=== PATIENT | male | born 1955 | race Caucasian/White ===

== ENCOUNTER 2017-06-06 07:00 | Inpatient (IN) | payer OTHER ==
[~2017-06-06] VITALS: Ht 182.9 cm; Wt 91.0 kg
[2017-06-06] VITALS (19 sets, daily range): BP systolic 102–131; BP diastolic 52–80; PULSE 58–78; RESP 13–28
--- NOTE | 2017-06-06 06:54 | HPN ---
Date/Time of Note Date/Time of Note DATE: 06/06/17 TIME: 06:53 Interval H&P Admission Note Pt. seen H&P reviewed: No system changes CASSY DAVIS MD Jun 06, 2017 06:53
[~2017-06-06 07:00] MED LIST: AZEL23SP NASAL; BUPIVACAINE 0.5% (SDV) 30 ML, morphine SULFATE (PF) 8 MG, EPINEPHrine 0.3 MG, KETOROLAC... IRR SCH; CEFAZOLIN 2 GM/50 ML (PMX) 50 ML IVPB SCH; DEXAMETHASONE 1 MG TAB PO SCH; METO-448 PO; MONT10TA21 PO; OLME20TA20 PO; SIMV20TA PO; SOD CHLORIDE 0.9% 100 ML, TRANEXAMIC ACID 3,000 MG IRR SCH; TRANEXAMIC ACID 1,000 MG in SOD CHLORIDE 0.9% 100 ML IVPB SCH
[2017-06-06] MEDS ORDERED: ASPI325T4 PO (07:34)
[2017-06-06] MEDS ORDERED: VALS1TAB76 PO (07:34)
[2017-06-06] MEDS ORDERED: CETI10CA11 PO (07:35)
[2017-06-06] MEDS ORDERED: morphine SULFATE/PF (10 MG/10 ML) INJ ONE (09:45)
[2017-06-06] MEDS ORDERED: PROPOFOL 20 ML ONE (09:45)
[2017-06-06] MEDS ORDERED: CEFAZOLIN 1 GM INJ ONE (09:45)
[2017-06-06] MEDS ORDERED: LIDOCAINE 2% (SDV) 5 ML INJ ONE (09:45)
[2017-06-06] MEDS ORDERED: THROMBIN 5000 UNIT VIAL ONE (10:39)
[2017-06-06] MEDS ORDERED: CA CHLORIDE 10% 10 ML SYRINGE ONE (10:39)
[2017-06-06] MEDS ORDERED: POLYMYXIN/BACITRACIN 1L IRRIG ONE (10:39)
[2017-06-06] MEDS ORDERED: ONDANSETRON 4 MG INJ ONE (11:08)
--- NOTE | 2017-06-06 11:57 | OPR ---
Date/Time of Note Date/Time of Note DATE: 06/06/17 TIME: 11:55 Operative Report Procedure Date: Jun 06, 2017 Preoperative Diagnosis Primary right hip arthritis Postoperative Diagnosis Primary right hip arthritis Operation Performed Right total hip arthroplasty Surgeon see signature line Foreign Broadcast Specialist: ESTEVAN HYDE MD Anesthesia Type: general Estimated Blood Loss: 150 - 200 ml's Transfusion Required: no Pt Condition Post Procedure: stable Disposition: PACU Procedure Description PRODUCTION POTTER SURGEON: Estevan Bowling MD was asked to be present at my request as a result of the complexity associated with this procedure including positioning of the extremity, positioning of the instrumentation and protection of the neurovascular structures. In my opinion, the assistance offered by a surgical coder is insufficient and Dr. Hyde should be compensated for his time. PROCEDURE IN DETAIL: Following the administration of general endotracheal anesthesia supplemented with a spinal anesthetic, the patient was placed in the supine position. The bilateral lower extremities were then prepped and draped in the usual sterile fashion. A night patrol inspector radiograph was obtained for preliminary limb length and femoral size as well as acetabular size. A lateral incision was then made exposing the tensor fascia the fascia was incised the tensor was retracted laterally and the vessels were cauterized. The anterior capsule was then identified and prepared. A capsulectomy was then performed and the femoral head was then evaluated. Severe arthritic changes were noted. A femoral head cut was then made in the appropriate degree of version and inclination. The acetabulum was then exposed and a capsulectomy and labrectomy were completed. The central portion was then entered and serially reamed up to the 51 mm size. A Depuy Jackson cup which is 52 mm in size with a standard liner was then fit into position with solid fixation. A 30 mm screw was used for additional fixation. Attention was then directed to the femur, the femur was exposed and prepared. The canal was entered and serially reamed up to the 10 mm size. A 10 mm Depuy Corail stem was then inserted with solid fixation. A 32 mm, +1.5 femoral head, which was ceramic was then inserted. The leg was taken through full range of motion with no evident instability. In addition, radiographs revealed excellent position with reproduction of the limb lengths within a millimeter. The wound was irrigated thoroughly. The wound was then closed in layers and a Prenio for the final cover. This was watertight. Estimated blood loss was procedure was 200 cc. Postoperative radiographs will be obtained in the recovery room. CASSY DAVIS MD Jun 06, 2017 11:57
--- NOTE | 2017-06-06 11:58 | PDOCDIS ---
Discharge Instructions DIAGNOSIS Discharge Diagnosis Primary hip arthritis CONDITION Patient Condition: Good HOME CARE INSTRUCTIONS: Diet Instructions: Regular ACTIVITY: Activity Restrictions: Slowly Increase Activity Keep Limb Elevated FOLLOW UP/APPOINTMENTS Follow-up Plan 2 weeks SCHOOL/WORK RELEASE May return to School/Work with: With Restrictions School/Work Release Comment: No hip extension for 6 weeks CASSY DAVIS MD Jun 06, 2017 11:58
[2017-06-06] MEDS ORDERED: HYDROmorphONE 1 MG/ML SYG IV PRN ×2 (12:00)
[2017-06-06] MEDS ORDERED: ZOLPIDEM 5 MG TAB PO PRN (12:00)
[2017-06-06] MEDS ORDERED: OXYCODONE/ACETAMINOPHEN (5/325) TAB PO PRN ×2 (12:00)
[2017-06-06] MEDS ORDERED: ONDANSETRON 4 MG INJ IV PRN ×2 (12:00)
[2017-06-06] MEDS ORDERED: ACETAMINOPHEN 500 MG TAB PO PRN (12:00)
[2017-06-06] MEDS ORDERED: DIPHENHYDRAMINE 50 MG INJ IV PRN ×2 (12:00)
[2017-06-06] MEDS ORDERED: BETHANECHOL 25 MG TAB PO PRN (12:00)
[2017-06-06] MEDS ORDERED: KETOROLAC 15 MG INJ IV PRN (12:00)
[2017-06-06] MEDS ORDERED: MAGNESIUM HYDROXIDE 30ML CUP PO PRN (12:00)
[2017-06-06] MEDS ORDERED: NALOXONE (0.4 MG/ML) INJ IV PRN (12:00)
[2017-06-06] MEDS ORDERED: morphine 2 MG INJ IV PRN (12:00)
[2017-06-06] MEDS ORDERED: morphine 4 MG/ML VIAL IV PRN (12:00)
[2017-06-06] MEDS ORDERED: TRANEXAMIC ACID 1,000 MG in SOD CHLORIDE 0.9% 100 ML IV ONE (13:00)
[2017-06-06] MEDS: CEFAZOLIN 1 GM/50 ML (PMX) 50 ML IVPB SCH ×2 (13:12→20:44)
--- NOTE | 2017-06-06 14:49 | RADRPT ---
PROCEDURE: XR Pelvis. CLINICAL INDICATION: Postop hip replacement. TECHNIQUE: Single AP view of the pelvis. COMPARISON: 08/02/2016. FINDINGS: Since the prior study there has been a total hip arthroplasty on the right. The prosthesis is well s eated, anatomically aligned and positioned without radiographic evidence of loosening. The left hip arthroplasty appears unchanged. IMPRESSION: 1. Status post right hip arthroplasty without evident hardware complication. RPTAT: [facility] Physician Itzel Date Time Electronically viewed and signed by Vaibhav Lopez Physician on 06/06/2017 14:48 /
[2017-06-06] MEDS: FLUTICASONE XX SCH ×2 (15:00→23:00)
[2017-06-06] MEDS: AZELASTINE XX SCH ×2 (15:00→23:00)
[2017-06-06] MEDS: DEXAMETHASONE 2 MG TAB PO SCH ×3 (15:12→23:30)
[2017-06-06] MEDS: LACTATED RINGER'S 1,000 ML IV SCH ×2 (15:30→21:54)
[2017-06-06 15:47] LABS: ABNORMAL IP MESSAGE 1; BASOPHILS % 0.2 % (0.0-2.0); EOSINOPHILS % 0.1 % (0.0-7.0); HEMATOCRIT 38.2 % (42.0-52.0); HEMOGLOBIN 12.6 g/dl (14.0-18.0); LYMPHOCYTES # 0.4 10^3/ul (0.8-2.9); LYMPHOCYTES % 4.2 % (15.0-51.0); MEAN CORPUSCULAR HEMOGLOBIN 30.4 pg (29.0-33.0); MONOCYTE # 0.6 10^3/ul (0.3-0.9); NEUTROPHIL # 9.3 10^3/ul (1.6-7.5); NEUTROPHILS % 88.9 % (39.0-77.0); PLATELET COUNT 190 10^3/UL (140-415); POSITIVE DIFF @See below; RED BLOOD COUNT 4.15 10^6/ul (4.70-6.10); RED CELL DISTRIBUTION WIDTH 12.9 % (11.5-14.5); WHITE BLOOD COUNT 10.4 10^3/ul (4.8-10.8)
--- NOTE | 2017-06-06 20:09 | PN ---
Date/Time of Note Date/Time of Note DATE: 06/06/17 TIME: 20:04 Assessment/Plan VTE Prophylaxis VTE Prophylaxis Intervention: ambulation Lines/Catheters IV Catheter Type (from Nrsg): Peripheral IV Assessment/Plan Chief Complaint/Hosp Course stable post Op THR Problems: Assessment/Plan Stable post op THR right hip Will be discharged on Saturday once cleared by PT Orders per Dr. Hair F/u office as instruced by Dr. Hair Subjective 24 Hr Interval Summary Free Text/Dictation Stable post op THR right hip No pain at this time. No nausea or emesis. No chest pain and no SOB. Constitutional: no complaints, No chills, No diaphoresis, No disoriented, No febrile, No improved, No other , No poor po, No requiring IVF, No requiring O2 Exam/Review of Systems Vital Signs Vitals Vital Signs Date Time Temp Pulse Resp B/P Pulse Ox O2 Delivery O2 Flow Rate FiO2 06/06/17 13:30 98.6 06/06/17 13:25 60 22 113/60 98 Room Air Exam Alert Oriented 'Chest- CTA Heart -RRR no murmurs Abdomen- soft BS active Right hip incision clean and dry No edema lower extremities Results Result Diagram: 06/06/17 1509 Results 24 hrs Laboratory Tests Test 06/06/17 15:09 White Blood Count 10.4 # Red Blood Count 4.15 L Hemoglobin 12.6 L Hematocrit 38.2 L Mean Corpuscular Volume 92.0 Mean Corpuscular Hemoglobin 30.4 Mean Corpuscular Hemoglobin Concent 33.0 Red Cell Distribution Width 12.9 Platelet Count 190 Mean Platelet Volume 9.0 # Neutrophils % 88.9 H Lymphocytes % 4.2 L Monocytes % 6.0 Eosinophils % 0.1 Basophils % 0.2 Nucleated Red Blood Cells % 0.0 Neutrophils # 9.3 H Lymphocytes # 0.4 L Monocytes # 0.6 Eosinophils # 0.0 Basophils # 0.0 Nucleated Red Blood Cells # 0.0 Medications Medications Current Medications Hydromorphone HCl (Dilaudid) 0.2 mg Q2H PRN IV PAIN LEVEL 1-5; Start 06/06/17 at 12:00 Hydromorphone HCl (Dilaudid) 0.4 mg Q2H PRN IV PAIN LEVEL 6-10 Last administered on 06/06/17t 15:18; Admin Dose 0.4 MG; Start 06/06/17 at 12:00 Diphenhydramine HCl (Benadryl) 25 mg Q4H PRN IV PRURITUS; Start 06/06/17 at 12: 00 Ondansetron HCl (Zofran Inj) 4 mg Q6H PRN IV NAUSEA AND/OR VOMITING; Start at 12:00 Naloxone HCl (Narcan) 0.2 mg Q2M PRN IV FOR RESP RATE 8 OR LESS; Start at 12:00 Metoprolol Tartrate (Lopressor) 12.5 mg BID PO ; Start 06/06/17 at 21:00 Montelukast Sodium (Singulair) 10 mg QHS PO ; Start 06/06/17 at 21:00 Miscellaneous Information 1 spray BID NASAL ; Start 06/06/17 at 21:00; Status UNV Loratadine (Claritin) 10 mg DAILY PO ; Start 06/07/17 at 09:00 Atorvastatin Calcium (Lipitor) 10 mg DAILY@21 PO ; Start 06/06/17 at 21:00 Valsartan 160 mg 160 mg DAILY PO ; Start 06/07/17 at 09:00 Cefazolin Sodium (Ancef 1 Gm/50 ml (Pmx)) 50 ml @ 100 mls/hr Q8H IVPB Last administered on 06/06/17t 13:12; Admin Dose 100 MLS/HR; Start 06/06/17 at 12:00 ; Stop 06/07/17 at 04:29 Senna/Docusate Sodium (Senokot-S) 1 tab BID PO ; Start 06/06/17 at 21:00 Simethicone (Mylicon) 80 mg TID PRN PO DISTENSION/GAS/BLOATING; Start 06/06/17 at 12:00 Magnesium Hydroxide (Milk Of Mag) 30 ml BID PRN PO CONSTIPATION; Start at 12:00 Acetaminophen (Tylenol Tab) 1,000 mg Q4H PRN PO TEMP GREATER THAN 100.4F; Start 06/06/17 at 12:00 Dexamethasone (Decadron) 2 mg Q6 PO Last administered on 06/06/17t 18:50; Admin Dose 2 MG; Start 06/06/17 at 12:00; Stop 06/07/17 at 06:01 Gabapentin (Neurontin) 300 mg HS PO ; Start 06/06/17 at 21:00 Oxycodone/ Acetaminophen (Percocet (5/ 325)) 1 tab Q4H PRN PO PAIN LEVEL 1-5; Start 06/06/17 at 12:00 Oxycodone/ Acetaminophen (Percocet (5/ 325)) 2 tab Q4H PRN PO PAIN LEVEL 6-10; Start 06/06/17 at 12:00 Morphine Sulfate (morphine) 2 mg Q2H PRN IV PAIN LEVEL 1-5; Start 06/06/17 at 12:00 Morphine Sulfate (morphine) 4 mg Q4H PRN IV PAIN LEVEL 6-10; Start 06/06/17 at 12:00 Ketorolac Tromethamine (Toradol) 15 mg Q6H PRN IV PAIN; Start 06/06/17 at 12:00 ; Stop 06/09/17 at 11:59 Ondansetron HCl (Zofran Inj) 4 mg Q6H PRN IV NAUSEA AND/OR VOMITING; Start at 12:00 Diphenhydramine HCl (Benadryl) 25 mg Q6H PRN IV PRURITUS; Start 06/06/17 at 12: 00 Aspirin 81 mg 81 mg DAILY PO ; Start 06/07/17 at 09:00 Lactated Ringer's (Lr) 1,000 ml @ 100 mls/hr Q10H IV Last administered on 06/06t 15:30; Admin Dose 100 MLS/HR; Start 06/06/17 at 11:54 Hydrochlorothiazide (Hydrochlorothiazide) 12.5 mg DAILY PO ; Start 06/07/17 at 09:00 Miscellaneous Information (*Order Clarification Bulletin) Azelastine/ Fluticasone (Dymista Na... Q8H XX ; Start 06/06/17 at 15:00 SUSHILA STEVENS MD Jun 06, 2017 20:09
[2017-06-06] MEDS: SENNA/DOCUSATE NA (8.6MG/50MG) TAB PO SCH (20:45)
[2017-06-06] MEDS: METOPROLOL 25 MG TAB PO SCH (20:46)
[2017-06-06] MEDS ORDERED: MONTELUKAST 10 MG TAB PO SCH (21:00)
[2017-06-06] MEDS ORDERED: ATORVASTATIN 10 MG TAB PO SCH (21:00)
[2017-06-06] MEDS ORDERED: GABAPENTIN 300 MG CAP PO SCH (21:00)
--- NOTE | 2017-06-07 01:40 | RADRPT ---
PROCEDURE: Intraoperative fluoroscopy CLINICAL INDICATION: Right hip replacement TECHNIQUE: 8 fluoroscopic images of the right hip were obtained by the operating surgeon. Total f luoroscopic time: 0.5 minutes COMPARISON: None. FINDINGS: Fluoroscopic images demonstrate placement of a noncemented right total hip replacement. There is als o a left hip replacement. IMPRESSION: Intraoperative fluoroscopy, as described. RPTAT: [facility] Physician Terry Date Time Electronically viewed and signed by Physician Terry on 06/07/2017 01:40 CS/
[2017-06-07] MEDS: CEFAZOLIN 1 GM/50 ML (PMX) 50 ML IVPB SCH (04:01)
[2017-06-07] MEDS: LACTATED RINGER'S 1,000 ML IV SCH (04:02)
[2017-06-07 06:00] VITALS: BP 116/68; PULSE 70; RESP 18
[2017-06-07] MEDS: DEXAMETHASONE 2 MG TAB PO SCH (06:30)
[2017-06-07] MEDS: FLUTICASONE XX SCH (07:00)
[2017-06-07] MEDS: AZELASTINE XX SCH (07:00)
--- NOTE | 2017-06-07 07:14 | PN ---
Date/Time of Note Date/Time of Note DATE: 06/07/17 TIME: 07:13 24 hour Interval Summary Silas is awake and alert. He has no pain. Physical Exam Sickle examination: He is neurologically intact. His wound is clean and dry. He has no signs of DVT. Vital Signs Date Time Temp Pulse Resp B/P Pulse Ox O2 Delivery O2 Flow Rate FiO2 06/06/17 23:44 98.3 65 19 116/64 100 06/06/17 16:00 Room Air Intake and Output 06/06/17 06/06/17 06/07/17 15:00 23:00 07:00 Intake Total 2000 ml 645 ml Output Total 350 ml 450 ml Balance 1650 ml 195 ml VTE Prophylaxis VTE Prophylaxis Intervention: anti-embolic stocking Lines/Catheters IV Catheter Type: Saline Lock Geronimo in Place: No Results Result Diagram: 06/06/17 1509 Results 24hrs Laboratory Tests Test 06/06/17 15:09 White Blood Count 10.4 # Red Blood Count 4.15 L Hemoglobin 12.6 L Hematocrit 38.2 L Mean Corpuscular Volume 92.0 Mean Corpuscular Hemoglobin 30.4 Mean Corpuscular Hemoglobin Concent 33.0 Red Cell Distribution Width 12.9 Platelet Count 190 Mean Platelet Volume 9.0 # Neutrophils % 88.9 H Lymphocytes % 4.2 L Monocytes % 6.0 Eosinophils % 0.1 Basophils % 0.2 Nucleated Red Blood Cells % 0.0 Neutrophils # 9.3 H Lymphocytes # 0.4 L Monocytes # 0.6 Eosinophils # 0.0 Basophils # 0.0 Nucleated Red Blood Cells # 0.0 Assessment/Plan Chief Complaint/Hosp Course stable post Op THR Problems: Assessment/Plan Assessment: Status post total hip replacement Plan: He will be discharged once physical therapy clears him later today. Medications Medications Home Meds Reported Medications Cetirizine Hcl (ALL DAY ALLERGY) 10 Mg Capsule, 10 MG PO DAILY, CAP 06/06/17 Valsartan-Hydrochlorothiazide (Valsartan-HCTZ) 160-12.5 Mg Tablet, 1 TAB PO DAILY, #30 TAB 06/06/17 Aspirin* (Aspirin*) 325 Mg Tablet, 325 MG PO DAILY, TAB 06/06/17 Azelastine/Fluticasone (DYMISTA NASAL SPRAY) 23 Gm [place].pump, 1 SPRAY NASAL BID , #1 BOTTLE TO EACH NOSTRIL 08/02/16 Montelukast Sodium* (Singulair*) 10 Mg Tablet, 10 MG PO QHS, #30 TAB 08/02/16 Metoprolol Tartrate* (Lopressor*) 25 Mg Tab, 12.5 MG PO BID, #60 TAB 08/02/16 Simvastatin* (Zocor*) 20 Mg Tablet, 20 MG PO QHS, #30 TAB 08/02/16 Discontinued Reported Medications Olmesartan Medoxomil (Benicar) 20 Mg Tablet, 20 MG PO DAILY, #30 TAB 08/02/16 CASSY DAVIS MD Jun 07, 2017 07:14
--- NOTE | 2017-06-07 07:15 | DS ---
Date/Time of Note Date/Time of Note DATE: 06/07/17 TIME: 07:14 Discharge Summary Admission/Discharge Info Admit Date/Time Jun 06, 2017 at 07:03 Discharge Date/Time June 07, 2017 following physical therapy clearance Discharge Diagnosis Primary hip arthritis Patient Condition: Good Procedures Right total hip arthroplasty Hx of Present Illness Pain and stiffness for several years Hospital Course Patient was admitted and taken to surgery for total hip replacement which was unremarkable. Postop day #1 he is afebrile he is awake and alert to be discharged followed up in the office in 2 weeks Home Meds Reported Medications Cetirizine Hcl (ALL DAY ALLERGY) 10 Mg Capsule, 10 MG PO DAILY, CAP 06/06/17 Valsartan-Hydrochlorothiazide (Valsartan-HCTZ) 160-12.5 Mg Tablet, 1 TAB PO DAILY, #30 TAB 06/06/17 Aspirin* (Aspirin*) 325 Mg Tablet, 325 MG PO DAILY, TAB 06/06/17 Azelastine/Fluticasone (DYMISTA NASAL SPRAY) 23 Gm [place].pump, 1 SPRAY NASAL BID , #1 BOTTLE TO EACH NOSTRIL 08/02/16 Montelukast Sodium* (Singulair*) 10 Mg Tablet, 10 MG PO QHS, #30 TAB 08/02/16 Metoprolol Tartrate* (Lopressor*) 25 Mg Tab, 12.5 MG PO BID, #60 TAB 08/02/16 Simvastatin* (Zocor*) 20 Mg Tablet, 20 MG PO QHS, #30 TAB 08/02/16 Discontinued Reported Medications Olmesartan Medoxomil (Benicar) 20 Mg Tablet, 20 MG PO DAILY, #30 TAB 08/02/16 Follow-up Plan 2 weeks Primary Care Provider Not On Staff Doctor Pending Labs Laboratory Tests Test 06/06/17 15:09 White Blood Count 10.410^3/ul (4.8-10.8) Red Blood Count 4.1510^6/ul (4.70-6.10) Hemoglobin 12.6g/dl (14.0-18.0) Hematocrit 38.2% (42.0-52.0) Mean Corpuscular Volume 92.0fl (82.0-101.0) Mean Corpuscular Hemoglobin 30.4pg (29.0-33.0) Mean Corpuscular Hemoglobin Concent 33.0g/dl (32.0-37.0) Red Cell Distribution Width 12.9% (11.5-14.5) Platelet Count 05234^3/UL (140-415) Mean Platelet Volume 9.0fl (7.4-10.4) Neutrophils % 88.9% (39.0-77.0) Lymphocytes % 4.2% (15.0-51.0) Monocytes % 6.0% (0.0-11.0) Eosinophils % 0.1% (0.0-7.0) Basophils % 0.2% (0.0-2.0) Nucleated Red Blood Cells % 0.0/100WBC (0.0-0.0) Neutrophils # 9.310^3/ul (1.6-7.5) Lymphocytes # 0.410^3/ul (0.8-2.9) Monocytes # 0.610^3/ul (0.3-0.9) Eosinophils # 0.010^3/ul (0.0-0.5) Basophils # 0.010^3/ul (0.0-0.1) Nucleated Red Blood Cells # 0.010^3/ul (0.0-0.0) CASSY DAVIS MD Jun 07, 2017 07:15
[2017-06-07 08:00] VITALS: BP 120/63; RESP 18
[2017-06-07 08:51] LABS: ABNORMAL IP MESSAGE 1; BASOPHILS % 0.1 % (0.0-2.0); HEMATOCRIT 33.9 % (42.0-52.0); HEMOGLOBIN 11.4 g/dl (14.0-18.0); LYMPHOCYTES # 0.6 10^3/ul (0.8-2.9); LYMPHOCYTES % 6.1 % (15.0-51.0); MEAN CORPUSCULAR HGB CONC 33.6 g/dl (32.0-37.0); MEAN CORPUSCULAR VOLUME 92.1 fl (82.0-101.0); MEAN PLATELET VOLUME 9.1 fl (7.4-10.4); MONOCYTE # 0.7 10^3/ul (0.3-0.9); MONOCYTES % 7.5 % (0.0-11.0); NEUTROPHIL # 8.4 10^3/ul (1.6-7.5); NEUTROPHILS % 85.9 % (39.0-77.0); PLATELET COUNT 178 10^3/UL (140-415); POSITIVE DIFF @See below; RED BLOOD COUNT 3.68 10^6/ul (4.70-6.10); RED CELL DISTRIBUTION WIDTH 12.8 % (11.5-14.5); WHITE BLOOD COUNT 9.7 10^3/ul (4.8-10.8)
[2017-06-07] MEDS ORDERED: LORATADINE 10 MG TAB PO SCH (09:00)
[2017-06-07] MEDS ORDERED: HYDROCHLOROTHIAZIDE 12.5 MG CAP PO SCH (09:00)
[2017-06-07] MEDS ORDERED: VALSARTAN 160 MG TAB PO SCH (09:00)
[2017-06-07] MEDS ORDERED: ASPIRIN 81 MG TAB PO SCH (09:00)
[2017-06-07] MEDS: METOPROLOL 25 MG TAB PO SCH (09:00)
[2017-06-07] MEDS: SENNA/DOCUSATE NA (8.6MG/50MG) TAB PO SCH (09:14)
[2017-06-07] MEDS ORDERED: AZELASTINE 30 ML NAS SPRAY NASAL SCH (09:30)
[2017-06-07] MEDS ORDERED: FLUTICASONE 0.05% 16 GM NAS SPRAY NASAL SCH (09:30)
[2017-06-07 10:00] VITALS: BP 123/70; PULSE 55
== END 2017-06-07 14:10 | disposition home or self-care (01) | DRG 470 ==
LOC: EDSTATUS 07:00 → REC 07:03 → MS1 13:26
PROVIDERS: ADMIT Orthopaedic Surgery; ATTEND Orthopaedic Surgery
PROC: 0SR904A Replacement of Right Hip Joint with Ceramic on Polyethylene Synthetic Substitute, Uncemented, Open Approach (ICD-10-PCS; principal; 2017-06-06 09:30)
DX: M16.11 Unilateral primary osteoarthritis, right hip (principal); Z96.642 Presence of left artificial hip joint
CPT/HCPCS: 72170; 73530; 85025; 86999; 87086; 97116; 97161; C1713; C1776; J0171; J0690; J0735; J1170; J1885; J2274; J2405; J3370; J7120